=== PATIENT | female | born 1975 | race Caucasian/White ===

== ENCOUNTER 2021-09-05 20:14 | Emergency (ER) | payer OTHER ==
[~2021-09-05] VITALS: Ht 157.5 cm; Wt 102.5 kg
[~2021-09-05 20:14] MED LIST: ACETAMINOPHEN325 M1 PO; ACID REDUCER75 MG PO; B COMPLETE1 EACH PO; BENEFIBER236 GM PO; CHEWABLE-VITE1 EAC1 PO; CYCLOBENZAPRINE10 MG PO; DAILY MULTIPLE1 EACH PO; DOXYCYCLINE HY100 MG PO; HYDROCODON-ACE1 EA10 PO; LISINOPRIL20 MG PO; NAPROSYN500 MG PO; NORCO 5-325 TA1 EACH PO; NORCO 7.5-3251 EACH PO; PERCOCET 5-3251 EACH PO; PERCOCET 7.5-31 EACH PO; TURMERIC500 MG PO; ZINC50 M1 PO; ZOLOFT100 MG PO
--- OUTSIDE RECORDS SUMMARY | 2021-09-05 20:16 | XMS ---
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 Akhil has no Care Guidelines for this patient. Skye VISIT COUNT (12 MO.) 1 GASTON Arce TOTAL 1 NOTE: Visits indicate total known visits. ED/UCC VISIT TRACKING (12 MO.) 09/05/2021 20:14 GASTON Zarate OR TYPE: Emergency COMPLAINT: - ABD PAIN, URINE PROBLEM INPATIENT VISIT TRACKING (12 MO.) No inpatient visits to display in this time frame [email or web address]
[2021-09-05] MEDS ORDERED: OMEPRAZOLE20 MG PO (21:15)
[2021-09-05] MEDS ORDERED: ATENOLOL-CHLOR1 EACH PO (21:16)
[2021-09-05] MEDS ORDERED: NITROFURANTOIN100 MG PO (21:16)
[2021-09-05] MEDS ORDERED: K-TAB ER20 MEQ PO (21:17)
[2021-09-05] MEDS ORDERED: DICLOFENAC SODI75 MG PO (21:18)
[2021-09-05] MEDS ORDERED: ONDANSETRON ODT8 MG PO (22:42)
[2021-09-05] MEDS ORDERED: HYDROCODON-ACE1 EA10 PO (22:42)
[2021-09-05] MEDS ORDERED: POTASSIUM CHLO20 ME1 PO (22:44)
== END 2021-09-05 23:02 | disposition home or self-care (01) ==
LOC: ED 20:14
DX: R10.30 Lower abdominal pain, unspecified (principal); E87.6 Hypokalemia; Z88.0 Allergy status to penicillin; Z88.5 Allergy status to narcotic agent; Z79.899 Other long term (current) drug therapy
CPT/HCPCS: 36415; 74177; 80053; 81001; 83690; 84703; 85025; 96375; 99284-25; A9270; J2270; J2405; J7030; Q9967